=== PATIENT | female | born 1985 | race Caucasian/White ===

== ENCOUNTER 2018-03-24 16:53 | Inpatient (IN) ==
[2018-03-24 18:36] LABS: AGAP 20; ALBUMIN 3.3 g/dL (3.5-5.0); ALKALINE PHOSPHATASE 86 U/L (32-104); AMYLASE 16 U/L (20-200); BUN 11 mg/dL (8-22); CALCIUM 9.3 mg/dL (8.8-10.2); CHLORIDE 94 mmol/L (98-107); COSMO 274; ESTIMATED GFR > 60; GLUCOSE 309 mg/dL (70-104); GOT 26 U/L (10-30); GPT 17 U/L (10-36); LIPASE 13 U/L (13-60); POTASSIUM 5.2 mmol/L (3.5-5.1); SODIUM 131 mmol/L (136-145); TCO2 17 mmol/L (25-35); TOTAL PROTEIN 7.7 g/dL (6.3-8.3)
[2018-03-24 19:18] LABS: BILIRUBIN URINE NEGATIVE (NEGATIVE); BLOOD URINE 1+ (NEGATIVE); KETONE URINE 3+(Large) mg/dL (NEGATIVE); LEUKOCYTES URINE TRACE (NEGATIVE); NITRITE URINE NEGATIVE (NEGATIVE); PH URINE 6.5; PROTEIN URINE TRACE mg/dL (NEGATIVE); UROBILINOGEN URINE NORMAL
[2018-03-24 19:19] LABS: COLOR YELLOW
[2018-03-24 19:20] LABS: CLARITY HAZY (CLEAR); URINE SOURCE CLEAN CATCH
[2018-03-24 19:22] LABS: URINE BACTERIA 2+ /HFP; URINE CAST NONE SEEN /LPF; URINE CRYSTAL NONE SEEN /HPF; URINE EPITHELIAL CELLS >10 /HPF (<10); URINE RBC <10 /HPF (<10); URINE WBC <10 /HPF (<10); URINE YEAST PRESENT /HPF
[2018-03-24] MEDS ORDERED: HUMULIN R IV ONE (20:10)
[2018-03-24] MEDS ORDERED: NS 1,000 ML IV ONE (20:11)
[2018-03-24 20:52] LABS: BE -2.3 mmoll (-3.0-3.0); BLOOD TYPE ARTERIAL; HCO3-(ACT) 23.1 mmoll (20.0-26.0); METHB 1.3 % (0.0-1.5); O2(CT) 21.7 mL/dL (15.0-23.0); O2HB 95.6 % (95.0-99.0); PCO2(98.6) 25 mmHg (35-45); PO2(98.6) 93 mmHg (60-100); SAMPLE BLOOD; THB 16.1 g/dL (11.5-17.4); pH(98.6) 7.49 (7.35-7.45)
[2018-03-24 20:55] LABS: ALLEN TEST YES; MODALITY ROOM AIR
[2018-03-24 21:01] LABS: BASO# 0.04 X1000 (0.0-0.2); BASO% 0.2 % (0.0-0.8); EOS# 0.03 X1000 (0.0-0.7); EOS% 0.1 % (0.0-10.0); HEMATOCRIT 50.7 % (37.0-47.0); HEMOGLOBIN 16.6 g/dL (12.0-16.0); IMM GRAN# 0.09 X1000 (0.0-0.04); IMM GRAN% 0.4 % (0.0-0.5); LYMPH# 3.25 X1000 (1.2-3.4); LYMPH% 12.7 % (20.5-51.1); MCH 26.6 PG (27-31); MCHC 32.7 g/dL (33-37); MCV 81.3 FL (81-99); MONO% 3.1 % (1.7-9.3); MPV 9.7 FL (7.4-10.4); NEUT# 21.45 X1000 (1.4-6.5); NEUT% 83.5 % (42.2-75.2); PLT 617 X1000 (130-400); RBC 6.24 XMIL (4.2-5.4); RDW 15.4 % (11.5-14.5); WBC 25.66 X1000 (4.8-10.8)
--- NOTE | 2018-03-24 22:11 | Diag Imaging Result Doc PS360 ---
EXAM: CHEST-2 VIEWS HISTORY: WBC 22K; R/O PNA TECHNIQUE: Chest two views COMPARISON: 10/03/2011 FINDINGS: The lungs are well expanded. The heart is not enlarged. The vessels are not distended. There are no infiltrates. No pleural effusions. There is a nodule in the anterior right lung. IMPRESSION: 1. No pneumonia. 2. Nodule in the anterior right lung Electronically signed by Pravin Luna 03/24/2018 10:08 PM
[2018-03-24] MEDS ORDERED: ZOSYN 3.375 GM in NS 50 ML IV ONE (22:12)
[2018-03-24] MEDS ORDERED: VANCOMYCIN IV PER PHARMACY MISC SCH (22:15)
--- NOTE | 2018-03-24 22:23 | Diag Imaging Result Doc PS360 ---
EXAM: CT ABD/PELVIS W/IV CONT ONLY HISTORY: L ABD PAIN THAT'S REBOUND TECHNIQUE: CT abdomen and pelvis with intravenous contrast COMPARISON: None. FINDINGS: There is an irregular 13 mm nodule anteriorly in the right lower lung. No pleural effusions. No calcified gallstones or adjacent inflammation. There is a small amount of fluid about the liver. There is fatty infiltration of the liver. Normal spleen, pancreas, and adrenal glands. There are multiple bilateral renal stones. No perinephric inflammation. No hydronephrosis although there is a 6 mm stone in the distal right ureter near the ureterovesical junction. Normal aorta. There is thickening to the wall of multiple mid and distal small bowel loops. These loops are mildly dilated. There is a [id number] amount of free fluid in the pelvis. Normal uterus. Urinary bladder is distended and is normal.. IMPRESSION: 1.Enteritis and possible early partial small bowel obstruction 2.Right lower lung nodule 3.Small amount of fluid about the liver and in the pelvis 4.Bilateral renal stones in addition to a large stone in the distal ureter near the ureterovesical junction. There is the possibility that this large calcification is immediately adjacent to the distal ureter and not within it. This exam was performed using automated exposure control, adjustment of mA or kV according to patient size, and/or use of iterative reconstruction technique. Electronically signed by Pravin Luna 03/24/2018 10:21 PM
[2018-03-24] MEDS ORDERED: MORPHINE IV ONE (22:50)
[2018-03-24] MEDS ORDERED: MOTRIN PO PRN (22:51)
[2018-03-24] MEDS ORDERED: CIPRO 400 MG/D5W 400 MG/200 ML IVPB IV SCH (23:00)
[2018-03-24] MEDS ORDERED: NS 1,000 ML ONE (23:06)
[2018-03-24] MEDS: NS 1,000 ML IV SCH (23:15)
[2018-03-24] MEDS: CIPRO 400 MG/D5W 400 MG/200 ML IVPB IV SCH (23:16)
[2018-03-24 23:59] LABS: INR 0.97; PROTIME 13.4 Seconds (11.0-16.0)
[2018-03-25] MEDS: FLAGYL 500 MG/NS 500 MG/100 ML IVPB IV SCH ×4 (00:33→18:50)
--- NOTE | 2018-03-25 07:55 | Diag Imaging Result Doc PS360 ---
EXAM: KUB ABDOMEN HISTORY: ?R.UVJ stone TECHNIQUE: Abdomen single view COMPARISON: 10/03/2015 FINDINGS: Contrast distends the urinary bladder. There is air in the proximal colon. Mildly distended bowel loops in the mid left abdomen. There are bilateral renal stones. No organomegaly. IMPRESSION: Nonspecific minimally distended small bowel loops in the mid left abdomen. Electronically signed by Pravin Luna 03/25/2018 7:52 AM
[2018-03-25 08:02] LABS: AGAP 10; ALKALINE PHOSPHATASE 66 U/L (32-104); BASO# 0.03 X1000 (0.0-0.2); BASO% 0.2 % (0.0-0.8); BUN 9 mg/dL (8-22); CALCIUM 8.1 mg/dL (8.8-10.2); CHLORIDE 105 mmol/L (98-107); COSMO 282; CREATININE 0.8 mg/dL (0.5-0.9); EOS# 0.14 X1000 (0.0-0.7); EOS% 0.9 % (0.0-10.0); ESTIMATED GFR > 60; GLUCOSE 228 mg/dL (70-104); GOT 11 U/L (10-30); GPT 11 U/L (10-36); HEMATOCRIT 40.5 % (37.0-47.0); IMM GRAN# 0.05 X1000 (0.0-0.04); IMM GRAN% 0.3 % (0.0-0.5); LYMPH# 3.78 X1000 (1.2-3.4); LYMPH% 24.4 % (20.5-51.1); MAGNESIUM 2.2 mg/dL (1.5-2.7); MCH 26.2 PG (27-31); MCHC 32.1 g/dL (33-37); MCV 81.7 FL (81-99); MONO# 1.03 X1000 (0.11-0.59); MONO% 6.6 % (1.7-9.3); MPV 9.4 FL (7.4-10.4); NEUT# 10.49 X1000 (1.4-6.5); NEUT% 67.6 % (42.2-75.2); PHOSPHORUS 2.6 mg/dL (2.7-4.5); PLT 425 X1000 (130-400); POTASSIUM 4.7 mmol/L (3.5-5.1); RBC 4.96 XMIL (4.2-5.4); RDW 14.9 % (11.5-14.5); SODIUM 138 mmol/L (136-145); TCO2 23 mmol/L (25-35); TOTAL PROTEIN 5.8 g/dL (6.3-8.3); WBC 15.52 X1000 (4.8-10.8)
[2018-03-25] MEDS ORDERED: ZOFRAN IV PRN (09:19)
--- NOTE | 2018-03-25 09:47 | HISTORY AND PHYSICAL ---
CHIEF COMPLAINT: Abdominal pain, vomiting. HISTORY OF PRESENT ILLNESS: This is a 32-year-old female with a history of kidney stones, diabetes mellitus, hypertension. She presents to the emergency room complaining of abdominal pain and nausea, vomiting and diarrhea that started 24 hours prior to coming to the ER. She denied any chest pain, palpitations, any black or bloody vomitus or stools, any fevers or chills. She was found to have an initial glucose of 309 with a sodium of 131 and potassium 5.2. She was found have a white count of 25. Urinalysis had 2+ bacteria with less than 10 microscopic white blood cells, but greater than 10 epithelial cells, which actually could be contamination. Urine culture is pending. Her pH is 7.[address] of the abdomen and pelvis revealed enteritis and a possible early partial small bowel obstruction with bilateral renal stones. She was given IV hydration as well as Zosyn and is being admitted for further evaluation and treatment. PAST MEDICAL HISTORY: Diabetes mellitus, hyperlipidemia, hypertension, kidney stones, depression. PAST SURGICAL HISTORY: Denies. SOCIAL HISTORY: She smokes about a pack a day. She denies alcohol or illicit drug use. ALLERGIES: No known drug allergies. HOME MEDICATIONS: A list will be obtained by the nursing staff and once verified, will review and restart as appropriate. REVIEW OF SYSTEMS: Discussed with patient with pertinent positives stated in the history of present illness. She denied any chest pain, palpitations, syncope, dizziness, any shortness of breath, cough, fever or chills, any black or bloody vomitus or stools, any hematuria, dysuria, frequency, urgency. PHYSICAL EXAMINATION: GENERAL: This is a 32-year-old female who is lying on the stretcher in the emergency room in no distress. VITAL SIGNS: Blood pressure is 132/89 with a heart rate of 80, respirations are 18, temperature is 98.3 degrees with room air saturations 97-98%. EYES: Pupils equal, round, react to light. EOMs are intact. Sclerae anicteric. HEENT: Head is normocephalic, atraumatic. Mucous membranes are moist. NECK: Supple with trachea midline. CARDIOVASCULAR: Regular rate and rhythm. S1, S2 appreciated. No murmurs noted. She has no lower extremity edema with peripheral pulses palpable x4 extremities. PULMONARY: Breath sounds are clear with no increased work of breathing noted GASTROINTESTINAL: Abdomen is soft. She does have some diffuse tenderness. She is nondistended with bowel sounds in all 4 quadrants. GENITOURINARY: She has no CVA nor suprapubic tenderness. NEUROLOGIC: She is alert, oriented x3. LABORATORIES: WBC is 25.6 with hemoglobin 16.6, hematocrit 50.7, and platelets 617,000. Sodium is 131, potassium 5.2, BUN 11, creatinine 1 with a glucose of 309. ABGs reveal pH of 7.49 with a pCO2 of 25. Urinalysis is positive for 3+ ketones, 1+ blood, but less than 10 microscopic red blood cells and white blood cells with greater than 10 epithelial cells. Urine was negative and urine culture and blood cultures are pending. ASSESSMENT AND PLAN: 1. Abdominal pain, nausea and vomiting. 2. Enteritis, possible early small-bowel obstruction. 3. Diabetes mellitus with hyperglycemia. 4. Hyponatremia. 5. Hyperkalemia. 6. Leukocytosis. PLAN: The patient will be admitted. We will repeat a CBC, CMP, magnesium and phosphorus and to the medical-surgical floor. We will repeat a BMP, CMP, CBC, Mag and phosphorus. We will place her on pattern blood glucose with sliding scale insulin. We will review her home medications and restart as appropriate. We will continue with IV hydration. On the CT, she does have bilateral renal stones. In addition, there is a stone in the distal ureter near the UVJ. There was a possibility this could be a large calcification that is adjacent to the distal ureter. KUB was performed and there was no UVJ stone seen per Radiology. She does continue to have distended small bowel loops in the mid left abdomen. For antibiotic coverage, we will continue Flagyl and Cipro. The patient did receive IV contrast. She does take metformin at home. We will hold this for at least 48 hours. For DVT prophylaxis, we will use Lovenox and GI prophylaxis Prilosec. Further treatments pending hospital course. Dictated by PRESLEY Lofton for Benji Javier MD This chart was documented by, PRESLEY Lofton and accurately reflects the services performed, treatment plan and medical decisions as attested by the providers signature Benji Javier MD. cc: PRESLEY Lofton MD
[2018-03-25] MEDS ORDERED: LOVENOX ONE (10:01)
[2018-03-25] MEDS: NS 1,000 ML IV SCH ×2 (10:09→22:20)
[2018-03-25] MEDS: FLOMAX PO SCH (10:09)
[2018-03-25] MEDS: CIPRO 400 MG/D5W 400 MG/200 ML IVPB IV SCH ×2 (11:00→22:20)
[2018-03-25] MEDS: MOTRIN PO PRN ×2 (16:36→22:20)
--- NOTE | 2018-03-26 01:43 | HISTORY AND PHYSICAL ---
ADDENDUM: Patient seen and examined by myself. Full note dictated and discussed with nurse practitioner. Patient presented to the hospital and was subsequently noted to have elevated blood sugars as well as nausea, vomiting, abdominal pain. Currently does not appear to be in DKA. We will continue on sliding scale insulin, keep NPO and follow. She does have a leukocytosis as well as elevated white count. cc: Benji Javier MD
[2018-03-26] MEDS: NS 1,000 ML IV SCH ×2 (02:20→06:34)
[2018-03-26] MEDS: FLAGYL 500 MG/NS 500 MG/100 ML IVPB IV SCH ×3 (02:23→16:58)
[2018-03-26 06:43] LABS: HEMATOCRIT 35.6 % (37.0-47.0); HEMOGLOBIN 11.8 g/dL (12.0-16.0); MCH 27.1 PG (27-31); MCHC 33.1 g/dL (33-37); MCV 81.8 FL (81-99); MPV 9.2 FL (7.4-10.4); RBC 4.35 XMIL (4.2-5.4); RDW 14.7 % (11.5-14.5); WBC 9.55 X1000 (4.8-10.8)
[2018-03-26] MEDS ORDERED: PRILOSEC PO SCH (07:00)
[2018-03-26 07:20] LABS: AGAP 9; ALBUMIN 2.8 g/dL (3.5-5.0); ALKALINE PHOSPHATASE 75 U/L (32-104); BUN 6 mg/dL (8-22); CALCIUM 7.8 mg/dL (8.8-10.2); CHLORIDE 106 mmol/L (98-107); COSMO 277; CREATININE 0.7 mg/dL (0.5-0.9); ESTIMATED GFR > 60; GLUCOSE 172 mg/dL (70-104); GOT 45 U/L (10-30); GPT 20 U/L (10-36); MAGNESIUM 2.1 mg/dL (1.5-2.7); PHOSPHORUS 2.1 mg/dL (2.7-4.5); SODIUM 138 mmol/L (136-145); TCO2 23 mmol/L (25-35); TOTAL PROTEIN 6.1 g/dL (6.3-8.3)
[2018-03-26] MEDS ORDERED: PRINIVIL PO SCH (09:00)
[2018-03-26] MEDS ORDERED: LOVENOX SUBQ SCH (09:00)
[2018-03-26] MEDS ORDERED: PATIENT'S OWN MED PO SCH (09:00)
[2018-03-26] MEDS: FLOMAX PO SCH (10:10)
[2018-03-26] MEDS: CIPRO 400 MG/D5W 400 MG/200 ML IVPB IV SCH (12:28)
[2018-03-26] MEDS: MOTRIN PO PRN (12:28)
[2018-03-26 17:09] VITALS: BP 135/74
--- NOTE | 2018-03-27 10:08 | DISCHARGE SUMMARY ---
ADMISSION DATE: 03/24/2018 DISCHARGE DATE: 03/26/2018 DIAGNOSES: 1. Abdominal pain, nausea, vomiting. Resolved. 2. Enteritis per CT scan. 3. Diabetes mellitus with hyperglycemia. 4. Hyponatremia, resolved. 5. Hyperkalemia, resolved. 6. Leukocytosis, resolved. DIAGNOSTICS: 1. 03/24/2018. Chest x-ray revealed no pneumonia, nodule in the anterior right lung. 2. CT of the abdomen and pelvis with IV contrast revealed enteritis and possibly early partial small bowel obstruction, right lower lung nodule, small amount of fluid around the liver and pelvis, bilateral renal stones. 3. Abdominal x-ray reveals nonspecific minimally distended small bowel loops in the mid left abdomen. There are bilateral renal stones. No organomegaly. MICROBIOLOGY: Urine culture revealed mixed leonela. HOSPITAL COURSE: Ms. Talavera presented to the emergency room complaining of 24 hours of abdominal pain, nausea, vomiting. She was found to have enteritis, possible early small-bowel obstruction per CT scan. She was initially held n.p.o. We have advanced her diet to a GI soft diet. She has eaten 2 meals, looks like 3 meals with no recurrence of nausea, vomiting or abdominal pain, which she has tolerated well. Blood sugars on presentation were blood sugar was 309. We covered blood sugars with sliding scale insulin and today they are in the 180 to 200 range. Of note, we did hold metformin as she had IV contrast. She has been instructed to hold metformin today and she can restart tomorrow morning on the 8th. Electrolytes were monitored and have normalized. Regarding the nodule in the anterior right lung, we have instructed her to follow up with her primary care provider once she is over this illness for further evaluation. DISCHARGE VITAL SIGNS: Blood pressure is 135/74, with a heart rate of 80, respirations are 20, temperature is 98.1 oral with O2 sats 100% on room air. DISCHARGE MEDICATIONS: Lipitor 40 mg p.o. at bedtime, Farxiga 10 mg p.o. daily, lisinopril 20 mg p.o. daily, Glucophage 1000 mg p.o. b.i.d., [*] 0.5 subcu as directed, Flomax 0.4 mg p.r.n. She is being discharged home in stable condition with family members present. TIME SPENT: This is a greater than 30 minute discharge. Dictated by PRESLEY Lofton for Benji Javier MD This chart was documented by, PRESLEY Lofton and accurately reflects the services performed, treatment plan and medical decisions as attested by the providers signature Benji Javier MD. cc: PRESLEY Lofton MD Gwendolyn Pereira
--- NOTE | 2018-03-28 00:23 | DISCHARGE SUMMARY ---
ADMISSION DATE: 03/24/2018 DISCHARGE DATE: 03/26/2018 ADDENDUM: Patient seen and examined by myself, full note dictated and discussed with nurse practitioner. On discharge patient is awake, alert, she is in no current respiratory distress. Abdominal pain has almost completely resolved. She tolerated full diet and therefore she will be discharged home. Please see full note. cc: Benji Javier MD
== END 2018-03-26 19:59 | disposition home or self-care (01) | DRG 638 ==
LOC: P.ED 16:53 → P.EDIPHOLD 22:42
PROVIDERS: ATTEND Family Medicine
CPT/HCPCS: 71020; 71046; 74000; 74018; 74177; 80053; 81001; 81025; 82009; 82150; 82550; 82805; 82948; 83605; 83690; 83735; 84100; 84484; 85025; 85027; 85610; 85730; 87040; 87088; 96361; 96365; 96366; 96367; 96375; 99285; A9270; J0744; J1650; J2270; J2405; J7030; Q9967; S0030; XXXXX